=== PATIENT | male | born 1940 | race Caucasian/White ===

== ENCOUNTER 2022-02-01 03:30 | Emergency (ER) | payer MEDICARE, OTHER ==
[~2022-02-01] VITALS: Ht 165.1 cm; Wt 71.8 kg
[~2022-02-01 03:30] MED LIST: CENTRUM SILVER1 TA1 PO; ENALAPRIL MALE2.5 MG PO; FLEXERIL10 MG PO; NIASPAN375 MG PO; PERCOCET 325 MG1 TA2 PO; PERCOCET 325 MG1 TA5 PO; PHENERGAN 25 TA25 MG PO; ST. JOSEPH81 M2 PO; VALIUM5 MG PO
[2022-02-01 03:34] VITALS: TEMP 97.5
[2022-02-01] MEDS ORDERED: VASOTEC 5MG5 MG/TAB PO (03:40)
[2022-02-01] MEDS ORDERED: GLUCOPHAGE XR500 M1 PO (03:40)
[2022-02-01] MEDS ORDERED: PRILOSEC 20MG20 MG PO (03:40)
[2022-02-01] MEDS ORDERED: ASPIRIN 81M81 MG/TA2 PO (03:41)
[2022-02-01 03:52] LABS: BASO # 0.1 K/mm3 (0.0-0.2); BASO % 0.8 % (0.0-2.0); EOS # 0.6 K/mm3 (0.0-0.7); EOS % 6.7 % (0.0-4.0); GRAN # 4.6 K/mm3 (1.4-6.5); GRAN % 50.3 % (42.2-75.2); HEMATOCRIT 44.6 % (42.0-52.0); HEMOGLOBIN 15.3 g/dl (13.5-18.0); LYMPH # 3.1 K/mm3 (1.2-3.4); LYMPH % 33.8 % (20.0-51.0); MEAN CELL VOLUME 89 fl (80.0-100.0); MEAN CORPUSCULAR HEMOGLOBIN 31 pg (27-31); MEAN CORPUSCULAR HGB CONC 34 g/dl (33.0-37.0); MEAN PLATELET VOLUME 9.7 fl (7.4-10.4); MONO # 0.8 K/mm3 (0.1-0.6); MONO % 8.2 % (1.7-9.3); PLATELET COUNT 268 K/mm3 (130-400); RED BLOOD COUNT 5.01 M/mm3 (4.20-5.60); REDCELL DISTRIBUTION WIDTH-CV 13.2 % (11.5-14.5)
[2022-02-01 04:12] LABS: ALBUMIN 3.9 gm/dL (3.4-4.8); BILIRUBIN,TOTAL 1.4 mg/dL (0.2-1.2); C-REACTIVE PROTEIN 0.59 mg/dL (0.00-0.50); CALCIUM 9.2 mg/dL (8.4-10.2); CREATININE, serum 1.41 mg/dL (0.72-1.25); MAGNESIUM 1.9 mg/dL (1.6-2.6); POTASSIUM 4.2 mmol/L (3.5-4.5); TOTAL PROTEIN 7.3 gm/dL (6.2-8.1)
[2022-02-01] MEDS ORDERED: FLEXERIL 1010 MG/TAB PO (04:28)
[2022-02-01] MEDS ORDERED: MEDROL 4MG DOSPA4 MG PO (04:28)
[2022-02-01 05:20] VITALS: BP 151/82; PULSE 73
== END 2022-02-01 05:20 | disposition home or self-care (01) ==
LOC: COL.ER 03:30
PROVIDERS: Emergency Medicine
DX: S39.011A Strain of muscle, fascia and tendon of abdomen, initial encounter (principal); R94.4 Abnormal results of kidney function studies; Z87.891 Personal history of nicotine dependence; X58.XXXA Exposure to other specified factors, initial encounter
CPT/HCPCS: J1885; J2360; J7030